=== PATIENT | male | born 1955 | race Native Hawaiian/Other Pacific Islander ===

== ENCOUNTER 2017-12-30 11:16 | Outpatient (CLI) | payer BC | END 2017-12-30 19:21 | disposition home or self-care (01) | LOC: MRI 11:16 | DX: M48.061 Spinal stenosis, lumbar region without neurogenic claudication (principal); M54.16 Radiculopathy, lumbar region ==

== ENCOUNTER 2018-11-18 09:50 | Outpatient (CLI) | payer BC | END 2018-11-18 21:04 | disposition home or self-care (01) | LOC: RAD 09:50 | DX: M25.562 Pain in left knee (principal); M71.20 Synovial cyst of popliteal space [Baker], unspecified knee ==

== ENCOUNTER 2019-07-02 08:18 | Outpatient (CLI) | payer BC | END 2019-07-02 23:19 | disposition home or self-care (01) | LOC: NM 08:18 | DX: Z01.818 Encounter for other preprocedural examination (principal) | CPT/HCPCS: A9500; J2785 ==

== ENCOUNTER 2020-08-19 09:32 | Outpatient (CLI) | payer BC | END 2020-08-19 20:34 | disposition home or self-care (01) | LOC: CT 09:32 | DX: K29.60 Other gastritis without bleeding (principal) | CPT/HCPCS: 36415; 82565; 84520 ==

== ENCOUNTER 2021-03-23 10:37 | Outpatient (CLI) | payer BC ==
[2021-03-23 10:56] LABS: PLATELET COUNT 143 K/uL (142-355)
[2021-03-23 11:05] LABS: POTASSIUM 4.3 mmol/L (3.6-5.2)
== END 2021-03-23 22:00 | disposition home or self-care (01) ==
LOC: LABW 10:37
PROVIDERS: ATTEND Internal Medicine Cardiovascular Disease
DX: I25.10 Atherosclerotic heart disease of native coronary artery without angina pectoris (principal); E78.49 Other hyperlipidemia; Z79.899 Other long term (current) drug therapy
CPT/HCPCS: 36415; 80048; 80061; 80076; 85027; 85610

== ENCOUNTER 2022-04-03 13:16 | Outpatient (CLI) | payer BC | END 2022-04-03 18:53 | disposition home or self-care (01) | LOC: RAD 13:16 | PROVIDERS: ATTEND Orthopaedic Surgery | DX: M25.562 Pain in left knee (principal) ==

== ENCOUNTER 2022-05-21 11:29 | Outpatient (CLI) | payer BC | END 2022-05-21 19:11 | disposition home or self-care (01) | LOC: RAD 11:29 | PROVIDERS: ATTEND Nurse Practitioner Family | DX: S90.121A Contusion of right lesser toe(s) without damage to nail, initial encounter (principal); L03.031 Cellulitis of right toe ==

== ENCOUNTER 2022-09-14 10:56 | Outpatient (CLI) | payer BC | END 2022-09-14 18:59 | disposition home or self-care (01) | LOC: RAD 10:56 | PROVIDERS: ATTEND Physician Assistant | DX: M25.562 Pain in left knee (principal) ==

== ENCOUNTER 2022-11-27 14:04 | Outpatient (CLI) | payer BC | END 2022-11-27 19:23 | disposition home or self-care (01) | LOC: RAD 14:04 | PROVIDERS: ATTEND Orthopaedic Surgery | DX: M25.511 Pain in right shoulder (principal); M25.512 Pain in left shoulder ==